=== PATIENT | female | born 1935 | race Asian ===

== ENCOUNTER 2021-01-01 15:03 | Inpatient (IN) | payer OTHER ==
[2021-01-01] MEDS ORDERED: ACETAMINOPHEN 1000 MG/100 ML VIAL (NON FORMULARY) IVPB ONE (15:24)
[2021-01-01] MEDS ORDERED: SODIUM CHLORIDE 0.9% 1000 ML INFUS.BAG IV ONE (15:24)
[2021-01-01] MEDS ORDERED: ACETAMINOPHEN INJECTION 100 ML IVPB ONE (15:56)
[2021-01-01] MEDS ORDERED: HALOPERIDOL LACTATE 5 MG/ML IM ONE (16:01)
[2021-01-01] MEDS ORDERED: HALOPERIDOL LACTATE 5 MG/ML SYRINGE ONE (16:02)
[2021-01-01 17:30] LABS: BASO % 3.6 % (0-2.0); EOS % 0.5 % (0-4.5); HEMOGLOBIN 12.8 GM/dl (10.7-15.3); LYMPH % 25.7 % (8-40); MCH 27.6 pg (25.7-33.7); MCHC 32.8 g/dl (32.0-36.0); MEAN PLT VOLUME 9.4 fl (7.5-11.1); MONO % 9.1 % (3.8-10.2); NEUT % 61.1 % (42.8-82.8); PLATELET COUNT 210 10^3/uL (134-434); RBC 4.64 M/mm3 (3.60-5.2); RDW 13.1 % (11.6-15.6); WHITE BLOOD COUNT 8.7 K/mm3 (4.0-10.8)
[2021-01-01 17:53] LABS: EPITHELIAL CELLS RARE /hpf
[2021-01-01 17:59] LABS: ALBUMIN 4.1 g/dl (3.4-5.0); ALK PHOS 66 U/L (45-117); ANION GAP 13 MMOL/L (8-16); BILIRUBIN,TOTAL 0.7 mg/dl (0.2-1); CALCIUM 9.1 mg/dl (8.5-10); CHLORIDE 105 mmol/L (98-107); CO2 21 mmol/L (21-32); CREATININE 0.8 mg/dl (0.55-1.3); GLUCOSE,RANDOM 114 mg/dl (74-106); SGOT/AST 45 U/L (15-37); SGPT/ALT 42 U/L (13-61); SODIUM 139 mmol/L (136-145); TOT PROT 7.9 g/dl (6.4-8.2)
[2021-01-01] MEDS ORDERED: ACETAMINOPHEN 500 MG TABLET (FP) PO SCH (21:45)
[2021-01-01] MEDS ORDERED: MIRTAZAPINE 15 MG TABLET (FP) PO SCH (22:00)
[2021-01-01 22:17] VITALS: BMI 23.7
[2021-01-01] MEDS: LISINOPRIL 10 MG TABLET PO SCH (22:44)
[2021-01-01] MEDS: DOCUSATE SODIUM 100 MG CAPSULE (FP) PO SCH (22:44)
[2021-01-01] MEDS: PANTOPRAZOLE 40 MG TABLET PO SCH (22:44)
[2021-01-01] MEDS: ENOXAPARIN NA (PORCINE) 40 MG/0.4 ML DISP.SYRIN SQ SCH (22:45)
[2021-01-01] MEDS: ATORVASTATIN CA 20 MG TABLET (FP) PO SCH (22:45)
[2021-01-01] MEDS: RIVASTIGMINE 9.5 MG/24 HOURS TRANSDERMAL PATCH TD SCH (22:56)
[2021-01-02] MEDS ORDERED: ACETAMINOPHEN 500 MG TABLET (FP) PO PRN (01:31)
[2021-01-02] MEDS: DOCUSATE SODIUM 100 MG CAPSULE (FP) PO SCH ×3 (06:08→22:42)
[2021-01-02 08:01] LABS: CREATININE 0.9 mg/dl (0.55-1.3)
[2021-01-02 08:02] LABS: BASO % 1.2 % (0-2.0); EOS % 0.5 % (0-4.5); HEMATOCRIT 37.4 % (32.4-45.2); HEMOGLOBIN 12.5 GM/dl (10.7-15.3); LYMPH % 27.7 % (8-40); MCHC 33.5 g/dl (32.0-36.0); MEAN CELL VOLUME 83.7 fl (80-96); MEAN PLT VOLUME 9.4 fl (7.5-11.1); MONO % 10.2 % (3.8-10.2); NEUT % 60.4 % (42.8-82.8); PLATELET COUNT 218 10^3/uL (134-434); RBC 4.47 M/mm3 (3.60-5.2); WHITE BLOOD COUNT 6.7 K/mm3 (4.0-10.8)
[2021-01-02] MEDS: LISINOPRIL 10 MG TABLET PO SCH ×2 (09:27→22:42)
[2021-01-02] MEDS: ENOXAPARIN NA (PORCINE) 40 MG/0.4 ML DISP.SYRIN SQ SCH (09:28)
[2021-01-02] MEDS: PANTOPRAZOLE 40 MG TABLET PO SCH (09:28)
[2021-01-02] MEDS: amLODIPine BESYLATE 10 MG TABLET (FP) PO SCH ×2 (09:30→14:07)
[2021-01-02] MEDS ORDERED: MIRTAZAPINE 15 MG TABLET (FP) PO SCH ×2 (10:00)
[2021-01-02] MEDS ORDERED: MELATONIN 5 MG TABLETS PO PRN (10:27)
[2021-01-02] MEDS: DULoxetine HCL 30 MG CAPSULE.DR PO SCH (11:19)
[2021-01-02 11:37] LABS: N-TERMINAL BNP 691.4 pg/ml (5-450)
[2021-01-02] MEDS ORDERED: clonazePAM 0.5 MG TABLET PO PRN (18:06)
[2021-01-02] MEDS ORDERED: PT OWN MED DRAWER 7, Y5N ONE (21:12)
[2021-01-02] MEDS: RIVASTIGMINE 9.5 MG/24 HOURS TRANSDERMAL PATCH TD SCH (22:41)
[2021-01-02] MEDS: ATORVASTATIN CA 20 MG TABLET (FP) PO SCH (22:42)
[2021-01-03] MEDS: DOCUSATE SODIUM 100 MG CAPSULE (FP) PO SCH ×2 (06:28→13:27)
[2021-01-03 08:46] LABS: ALBUMIN 3.8 g/dl (3.4-5.0); ALK PHOS 59 U/L (45-117); ANION GAP 9 MMOL/L (8-16); BILIRUBIN,TOTAL 0.7 mg/dl (0.2-1); CALCIUM 8.9 mg/dl (8.5-10); CHLORIDE 107 mmol/L (98-107); CHOLESTEROL 162 mg/dl (50-200); CO2 27 mmol/L (21-32); CREATININE 0.8 mg/dl (0.55-1.3); GLUCOSE,RANDOM 117 mg/dl (74-106); HDL CHOLESTEROL 35 mg/dl (40-60); LDL CHOLESTEROL (ONLY DFH) 96 mg/dl (5-100); SGOT/AST 35 U/L (15-37); SGPT/ALT 33 U/L (13-61); SODIUM 143 mmol/L (136-145); TOT PROT 7.1 g/dl (6.4-8.2); TRIGLYCERIDES 155 mg/dl (0-150)
[2021-01-03] MEDS: LISINOPRIL 10 MG TABLET PO SCH (09:35)
[2021-01-03] MEDS: amLODIPine BESYLATE 10 MG TABLET (FP) PO SCH (09:35)
[2021-01-03] MEDS: DULoxetine HCL 30 MG CAPSULE.DR PO SCH (09:35)
[2021-01-03] MEDS: ENOXAPARIN NA (PORCINE) 40 MG/0.4 ML DISP.SYRIN SQ SCH (09:35)
[2021-01-03] MEDS: PANTOPRAZOLE 40 MG TABLET PO SCH (09:35)
[2021-01-03 09:48] VITALS: PULSE 87
[2021-01-03] MEDS ORDERED: APIXABAN 2.5 MG TABLET PO SCH (10:00)
[2021-01-03 11:36] LABS: N-TERMINAL BNP 398.3 pg/ml (5-450)
[2021-01-03] MEDS ORDERED: clonazePAM 0.5 MG TABLET PO SCH (13:00)
[2021-01-03 14:13] VITALS: BP 131/59; TEMP 98.5
[2021-01-03] MEDS ORDERED: MELATONIN 5 MG TABLETS PO SCH (22:00)
== END 2021-01-03 14:26 | disposition home or self-care (01) | DRG 310 ==
LOC: FER 15:03 → FM/S 21:20 → OBSVTOIN 21:52
PROVIDERS: ADMIT Internal Medicine; ATTEND Internal Medicine
DX: I48.0 Paroxysmal atrial fibrillation (principal); I25.10 Atherosclerotic heart disease of native coronary artery without angina pectoris; I10 Essential (primary) hypertension; E78.5 Hyperlipidemia, unspecified; F03.90 Unspecified dementia, unspecified severity, without behavioral disturbance, psychotic disturbance, mood disturbance, and anxiety; E11.9 Type 2 diabetes mellitus without complications; F41.9 Anxiety disorder, unspecified; K76.0 Fatty (change of) liver, not elsewhere classified; M19.90 Unspecified osteoarthritis, unspecified site; M62.81 Muscle weakness (generalized); K57.30 Diverticulosis of large intestine without perforation or abscess without bleeding; N85.9 Noninflammatory disorder of uterus, unspecified; F91.9 Conduct disorder, unspecified; K80.20 Calculus of gallbladder without cholecystitis without obstruction; Z95.1 Presence of aortocoronary bypass graft; R10.9 Unspecified abdominal pain
CPT/HCPCS: 36415; 71045-TC-FY; 74177-TC; 80048; 80053; 80061; 81003; 81015; 82550; 82553; 83036; 83605; 83880; 84443; 84484; 85025; 85730; 86850; 86900; 86901; 87040; 87086; 93005; 93010; 93306-TC; 97116-GP; 97162-GP; 99285-25; C9803; G0378; J0131; Q9967; U0003; U0005

== ENCOUNTER 2021-01-05 04:41 | Emergency (ER) | payer OTHER ==
[2021-01-05 04:52] VITALS: BP 155/78; PULSE 73; TEMP 97.5; BMI 25.2
== END 2021-01-05 09:17 | disposition home or self-care (01) ==
LOC: FER 04:41
DX: S09.90XA Unspecified injury of head, initial encounter (principal); W06.XXXA Fall from bed, initial encounter; Y92.129 Unspecified place in nursing home as the place of occurrence of the external cause
CPT/HCPCS: 70450-TC; 99284-25

== ENCOUNTER 2021-01-31 16:45 | Emergency (ER) | payer OTHER ==
[2021-01-31 17:24] VITALS: BP 144/65; PULSE 77; TEMP 98.7; BMI 21.7
[2021-01-31 17:33] LABS: EPITHELIAL CELLS RARE /hpf
== END 2021-01-31 20:24 ==
LOC: FER 16:45
DX: S09.90XA Unspecified injury of head, initial encounter (principal); W01.198A Fall on same level from slipping, tripping and stumbling with subsequent striking against other object, initial encounter
CPT/HCPCS: 70450-TC; 72125-TC; 81003; 81015; 82962; 87086; 87186; 93005; 99285-25

== ENCOUNTER 2021-04-13 11:47 | Emergency (ER) | payer MEDICARE, OTHER ==
[2021-04-13 12:22] VITALS: TEMP 98; BMI 22.9
[2021-04-13 13:36] LABS: EPITHELIAL CELLS RARE /hpf
[2021-04-13 14:14] LABS: ALBUMIN 3.9 g/dl (3.4-5.0); BILIRUBIN,TOTAL 0.7 mg/dl (0.2-1); CALCIUM 9.2 mg/dl (8.5-10); CREATININE 0.7 mg/dl (0.55-1.3); TOT PROT 7.8 g/dl (6.4-8.2)
[2021-04-13 14:20] LABS: BASO % 0.7 % (0-2.0); EOS % 0.9 % (0-4.5); HEMATOCRIT 38.1 % (32.4-45.2); HEMOGLOBIN 12.8 GM/dL (10.7-15.3); LYMPH % 25.6 % (8-40); MCH 28.3 pg (25.7-33.7); MCHC 33.6 g/dl (32.0-36.0); MEAN PLT VOLUME 8.9 fl (7.5-11.1); MONO % 10.8 % (3.8-10.2); PLATELET COUNT 195 10^3/uL (134-434); RBC 4.53 M/mm3 (3.60-5.2); RDW 13.8 % (11.6-15.6); WHITE BLOOD COUNT 4.9 K/mm3 (4.0-10.0)
== END 2021-04-13 17:37 ==
LOC: FER 11:47
DX: F03.91 Unspecified dementia, unspecified severity, with behavioral disturbance (principal); W19.XXXA Unspecified fall, initial encounter
CPT/HCPCS: 36415; 70450-TC; 73030-TC-LT-FY; 74177-TC; 80053; 81003; 81015; 84484; 85025; 87086; 93005; 99285-25; Q9967

== ENCOUNTER 2021-04-21 02:06 | Inpatient (IN) | payer OTHER ==
[2021-04-21] MEDS ORDERED: morphine SULFATE IMMEDIATE RELEASE 30 MG TAB PO ONE (02:23)
[2021-04-21] MEDS ORDERED: morphine SULFATE IMMEDIATE RELEASE 30 MG TAB ONE (02:52)
[2021-04-21 05:00] LABS: BASO % 0.7 % (0-2.0); EOS % 1.3 % (0-4.5); HEMATOCRIT 35.6 % (32.4-45.2); HEMOGLOBIN 11.8 GM/dL (10.7-15.3); LYMPH % 29.5 % (8-40); MCH 27.5 pg (25.7-33.7); MEAN CELL VOLUME 83.2 fl (80-96); MEAN PLT VOLUME 9.1 fl (7.5-11.1); MONO % 9.8 % (3.8-10.2); NEUT % 58.7 % (42.8-82.8); PLATELET COUNT 240 10^3/uL (134-434); RBC 4.28 M/mm3 (3.60-5.2); RDW 13.9 % (11.6-15.6); WHITE BLOOD COUNT 6.8 K/mm3 (4.0-10.0)
[2021-04-21 05:19] LABS: CHLORIDE 107 mmol/L (98-107); SODIUM 141 mmol/L (136-145)
[2021-04-21 05:21] LABS: ALBUMIN 3.5 g/dl (3.4-5.0); ANION GAP 9 MMOL/L (8-16); BLOOD UREA NITROGEN 13.1 mg/dL (7-18); CALCIUM 9.1 mg/dL (8.5-10.1); CO2 25 mmol/L (21-32)
[2021-04-21 05:22] LABS: GLUCOSE,RANDOM 133 mg/dL (74-106)
[2021-04-21 05:24] LABS: SGPT/ALT 37 U/L (13-61)
[2021-04-21 05:25] LABS: CREATININE 0.8 mg/dL (0.55-1.3); SGOT/AST 41 U/L (15-37)
[2021-04-21 05:26] LABS: BILIRUBIN,TOTAL 0.5 mg/dL (0.2-1); TOT PROT 8.2 g/dl (6.4-8.2)
[2021-04-21 05:27] LABS: ALK PHOS 77 U/L (45-117)
[2021-04-21 07:00] VITALS: BMI 23.6
[2021-04-21] MEDS ORDERED: DOCUSATE SODIUM 100 MG CAPSULE (FP) PO PRN (07:16)
[2021-04-21] MEDS ORDERED: MELATONIN 5 MG TABLETS PO PRN (07:18)
[2021-04-21] MEDS: DULoxetine HCL 30 MG CAPSULE.DR PO SCH (09:00)
[2021-04-21] MEDS: OMEGA-3 ACID ETHYL ESTERS (FATTY-ACIDS) 1 GM CAPSULE (FP) PO SCH (09:00)
[2021-04-21] MEDS: APIXABAN 2.5 MG TABLET PO SCH ×2 (09:01→21:26)
[2021-04-21] MEDS: PANTOPRAZOLE 40 MG TABLET PO SCH (09:01)
[2021-04-21] MEDS: LISINOPRIL 10 MG TABLET PO SCH ×2 (09:01→21:27)
[2021-04-21] MEDS: amLODIPine BESYLATE 10 MG TABLET (FP) PO SCH (09:01)
[2021-04-21] MEDS: CYANOCOBALAMIN 1,000 MCG TABLET (FP) PO SCH (09:01)
[2021-04-21] MEDS ORDERED: LISINOPRIL 10 MG TABLET PO SCH (10:00)
[2021-04-21] MEDS: DOCUSATE SODIUM 100 MG CAPSULE (FP) PO SCH ×2 (11:32→21:26)
[2021-04-21] MEDS: RIVASTIGMINE 9.5 MG/24 HOURS TRANSDERMAL PATCH TD SCH (12:06)
[2021-04-21] MEDS: MIRTAZAPINE 30 MG TABLET PO SCH (21:27)
[2021-04-21] MEDS ORDERED: ATORVASTATIN CA 20 MG TABLET (FP) PO SCH (22:00)
[2021-04-22 08:41] LABS: CHOLESTEROL 194 mg/dl (50-200); HDL CHOLESTEROL 46 mg/dl (40-60); LDL CHOLESTEROL (ONLY DFH) 121 mg/dl (5-100); TRIGLYCERIDES 136 mg/dl (0-150)
[2021-04-22] MEDS: APIXABAN 2.5 MG TABLET PO SCH ×2 (09:57→21:21)
[2021-04-22] MEDS: OMEGA-3 ACID ETHYL ESTERS (FATTY-ACIDS) 1 GM CAPSULE (FP) PO SCH ×2 (09:57→21:31)
[2021-04-22] MEDS: amLODIPine BESYLATE 10 MG TABLET (FP) PO SCH (09:57)
[2021-04-22] MEDS: CYANOCOBALAMIN 1,000 MCG TABLET (FP) PO SCH (09:57)
[2021-04-22] MEDS: DOCUSATE SODIUM 100 MG CAPSULE (FP) PO SCH ×2 (09:57→21:23)
[2021-04-22] MEDS: DULoxetine HCL 30 MG CAPSULE.DR PO SCH (09:57)
[2021-04-22] MEDS: RIVASTIGMINE 9.5 MG/24 HOURS TRANSDERMAL PATCH TD SCH (09:58)
[2021-04-22] MEDS: PANTOPRAZOLE 40 MG TABLET PO SCH (09:58)
[2021-04-22] MEDS: LISINOPRIL 10 MG TABLET PO SCH ×2 (09:58→21:21)
[2021-04-22] MEDS ORDERED: PT OWN MED DRAWER 7, Y5N ONE (11:11)
[2021-04-22] MEDS ORDERED: ATORVASTATIN CA 40 MG TABLET (FP) PO SCH (11:13)
[2021-04-22] MEDS: MIRTAZAPINE 30 MG TABLET PO SCH (21:23)
[2021-04-23 08:52] VITALS: BP 150/78; PULSE 88; TEMP 98.4
[2021-04-23] MEDS: DOCUSATE SODIUM 100 MG CAPSULE (FP) PO SCH (09:40)
[2021-04-23] MEDS: LISINOPRIL 10 MG TABLET PO SCH (09:40)
[2021-04-23] MEDS: APIXABAN 2.5 MG TABLET PO SCH (09:40)
[2021-04-23] MEDS: amLODIPine BESYLATE 10 MG TABLET (FP) PO SCH (09:40)
[2021-04-23] MEDS: CYANOCOBALAMIN 1,000 MCG TABLET (FP) PO SCH (09:41)
[2021-04-23] MEDS: PANTOPRAZOLE 40 MG TABLET PO SCH (09:41)
[2021-04-23] MEDS: DULoxetine HCL 30 MG CAPSULE.DR PO SCH (09:41)
[2021-04-23] MEDS: OMEGA-3 ACID ETHYL ESTERS (FATTY-ACIDS) 1 GM CAPSULE (FP) PO SCH (09:41)
[2021-04-23] MEDS: RIVASTIGMINE 9.5 MG/24 HOURS TRANSDERMAL PATCH TD SCH (09:49)
[2021-04-23] MEDS ORDERED: BACITRACIN 15 GM TUBE TOPICAL OINTMENT TP SCH (10:00)
== END 2021-04-23 10:16 | disposition home or self-care (01) | DRG 312 ==
LOC: FER 02:06 → FM/S 06:26
PROVIDERS: ADMIT Internal Medicine; ATTEND Internal Medicine
DX: R55 Syncope and collapse (principal); I10 Essential (primary) hypertension; F03.90 Unspecified dementia, unspecified severity, without behavioral disturbance, psychotic disturbance, mood disturbance, and anxiety; I25.10 Atherosclerotic heart disease of native coronary artery without angina pectoris; E78.5 Hyperlipidemia, unspecified; I48.91 Unspecified atrial fibrillation; F41.9 Anxiety disorder, unspecified; I51.7 Cardiomegaly; Z95.1 Presence of aortocoronary bypass graft; R00.0 Tachycardia, unspecified
CPT/HCPCS: 36415; 70450-TC; 72125-TC; 80053; 80061; 83036; 84484; 85025; 93005; 97116-GP; 97161-GP; 99285-25; C9803; U0003; U0005

== ENCOUNTER 2021-07-15 14:15 | Emergency (ER) | payer OTHER, MEDICARE ==
[2021-07-15 14:50] VITALS: BP 113/54; PULSE 70; TEMP 97.9; BMI 23.5
[2021-07-15 18:47] LABS: BASO % 0.6 % (0-2.0); EOS % 0.6 % (0-4.5); HEMATOCRIT 34.9 % (32.4-45.2); HEMOGLOBIN 11.4 GM/dL (10.7-15.3); LYMPH % 18.8 % (8-40); MCHC 32.6 g/dl (32.0-36.0); MEAN CELL VOLUME 79.8 fl (80-96); MEAN PLT VOLUME 9.1 fl (7.5-11.1); MONO % 10.5 % (3.8-10.2); NEUT % 69.5 % (42.8-82.8); PLATELET COUNT 272 10^3/uL (134-434); RBC 4.37 M/mm3 (3.60-5.2); RDW 14.4 % (11.6-15.6); WHITE BLOOD COUNT 7.2 K/mm3 (4.0-10.0)
[2021-07-15 18:53] LABS: BLOOD UREA NITROGEN 13.4 mg/dL (7-18); CREATININE 0.8 mg/dL (0.55-1.3)
[2021-07-15 18:54] LABS: ALBUMIN 2.9 g/dl (3.4-5.0); BILIRUBIN,TOTAL 0.5 mg/dL (0.2-1); CALCIUM 9.2 mg/dL (8.5-10.1); TOT PROT 7.9 g/dl (6.4-8.2)
[2021-07-16 13:10] LABS: SARS-CoV-2 NAA Not Detected (Not Detected)
== END 2021-07-15 19:42 | disposition home or self-care (01) ==
LOC: SUPCPDRO 14:15 → FER 14:15
DX: R68.89 Other general symptoms and signs (principal); W19.XXXA Unspecified fall, initial encounter
CPT/HCPCS: 36415; 70450-TC; 71045-TC-FY; 72125-TC; 72170-TC-FY; 73502-TC-LT-FY; 80053; 82550; 83690; 84484; 85025; 99285-25; C9803-CS; U0003; U0005

== ENCOUNTER 2021-08-29 23:44 | Emergency (ER) | payer MEDICARE, OTHER ==
[2021-08-29 23:54] VITALS: BP 118/49; PULSE 64; TEMP 97.9; BMI 23.1
[2021-08-30 01:43] LABS: BASO % 0.6 % (0-2.0); EOS % 0.7 % (0-4.5); HEMATOCRIT 33.4 % (32.4-45.2); HEMOGLOBIN 10.9 GM/dL (10.7-15.3); LYMPH % 34.3 % (8-40); MCHC 32.7 g/dl (32.0-36.0); MEAN CELL VOLUME 79.4 fl (80-96); MEAN PLT VOLUME 8.5 fl (7.5-11.1); NEUT % 55.4 % (42.8-82.8); PLATELET COUNT 390 10^3/uL (134-434); RBC 4.21 M/mm3 (3.60-5.2); RDW 16.3 % (11.6-15.6); WHITE BLOOD COUNT 5.7 K/mm3 (4.0-10.0)
[2021-08-30 01:45] LABS: URINE APPEARANCE CLEAR; URINE BILIRUBIN NEGATIVE (NEGATIVE); URINE COLOR DK YELLOW; URINE GLUCOSE (UA) NEGATIVE (NEGATIVE); URINE KETONE NEGATIVE (NEGATIVE); URINE LEUK ESTERASE NEGATIVE (NEGATIVE); URINE NITRITE NEGATIVE (NEGATIVE); URINE PROTEIN NEGATIVE (NEGATIVE); URINE UROBILINOGEN 0.2 mg/dL (0.2-1.0)
[2021-08-30 02:00] LABS: CALCIUM 9.2 mg/dL (8.5-10.1)
[2021-08-30 02:01] LABS: BLOOD UREA NITROGEN 17.7 mg/dL (7-18)
[2021-08-30 02:04] LABS: CREATININE 0.7 mg/dL (0.55-1.3)
[2021-08-30 02:06] LABS: BILIRUBIN,TOTAL 0.3 mg/dL (0.2-1); TOT PROT 7.7 g/dl (6.4-8.2)
== END 2021-08-30 05:09 | disposition home or self-care (01) ==
LOC: FER 23:44
DX: R68.89 Other general symptoms and signs (principal); W19.XXXA Unspecified fall, initial encounter
CPT/HCPCS: 36415; 70450-TC; 80053; 81003; 85025; 99284-25

== ENCOUNTER 2021-09-12 17:41 | Emergency (ER) | payer OTHER ==
[2021-09-12 18:33] VITALS: BP 109/88; PULSE 77; TEMP 98; BMI 17.7
== END 2021-09-12 22:25 ==
LOC: FER 17:41
DX: F03.90 Unspecified dementia, unspecified severity, without behavioral disturbance, psychotic disturbance, mood disturbance, and anxiety (principal); W19.XXXA Unspecified fall, initial encounter
CPT/HCPCS: 70450-TC; 72125-TC; 93005; 99284-25